=== PATIENT | female | born 1990 | race Two or more races ===

== ENCOUNTER 2024-04-19 23:36 | Emergency (ER) | payer OTHER ==
[~2024-04-19] VITALS: Ht 167.6 cm; Wt 56.9 kg
[2024-04-19] MEDS: KETOROLAC TROMETH 60MG/2ML VIAL IM ONE (23:50)
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
--- NOTE | 2024-04-20 01:42 | DVH ---
CLINICAL INDICATION: Left arm injury TECHNIQUE: XY L HUMERUS XRAY Comparison: Report from left humerus radiograph dated 04/14/2024 FINDINGS/IMPRESSION: : Obliquely oriented displaced fracture of the distal left humerus with less than 1 shaft width lateral and 1 shaft width posterior displacement of the dominant distal fracture fragment. A splint is in place. Overlying soft tissues are intact
[2024-04-20 01:55] VITALS: BP 106/46; TEMP 98.1
[2024-04-20 01:57] VITALS: PULSE 77; RESP 16; O2SAT 99
== END 2024-04-20 01:53 | disposition home or self-care (01) ==
LOC: ER 23:36
DX: S42.302A Unspecified fracture of shaft of humerus, left arm, initial encounter for closed fracture (principal); V79.9XXA Bus occupant (driver) (passenger) injured in unspecified traffic accident, initial encounter; Y93.89 Activity, other specified; Y92.89 Other specified places as the place of occurrence of the external cause; Y99.8 Other external cause status
CPT/HCPCS: 73060; 96372; 99283; J1885